=== PATIENT | female | born 1945 | race Hispanic/Latino ===

== ENCOUNTER → 2017-07-31 | Outpatient (CLI) | payer OTHER ==
[~2017-07-31] MED LIST: ASPI-1012 PO; BUTA1CAP53 PO; CARB15DR3 OU; CYCL30DR OU; DOCU100C33 PO; FLUT15.88 NS; HYDR-2132 PO; HYDR200T4 PO; HYDR25TA PO; IPRA21SP NS; METO-409 PO; VITAMIN D PO; [UNRECOGNIZED DRUG - CODE] PO
== END ==
LOC: RAH 16:26
PROVIDERS: ATTEND Internal Medicine
DX: M54.5 Low back pain (principal)
CPT/HCPCS: 72100

== ENCOUNTER → 2018-02-26 | Outpatient (CLI) | payer OTHER | END | disposition home or self-care (01) | LOC: RAH 13:05 | PROVIDERS: ATTEND Internal Medicine | DX: Z12.31 Encounter for screening mammogram for malignant neoplasm of breast (principal) | CPT/HCPCS: 77067 ==

== ENCOUNTER → 2018-08-27 | Outpatient (CLI) | payer OTHER | END | disposition home or self-care (01) | LOC: RAH 15:21 | PROVIDERS: ATTEND Internal Medicine | DX: D73.89 Other diseases of spleen (principal); I70.90 Unspecified atherosclerosis | CPT/HCPCS: 76700 ==

== ENCOUNTER → 2018-10-12 | Outpatient (CLI) | payer OTHER | END | disposition home or self-care (01) | LOC: SHCH 14:08 | PROVIDERS: ATTEND Internal Medicine Cardiovascular Disease | DX: I37.1 Nonrheumatic pulmonary valve insufficiency (principal) | CPT/HCPCS: 93306 ==

== ENCOUNTER → 2019-05-23 | Outpatient (CLI) | payer OTHER ==
[~2019-05-23] MED LIST changes: +FLUT15.845 NS; -FLUT15.88 NS
== END | disposition home or self-care (01) ==
LOC: RAH 15:37
PROVIDERS: ATTEND Internal Medicine
DX: Z12.31 Encounter for screening mammogram for malignant neoplasm of breast (principal)
CPT/HCPCS: 77067

== ENCOUNTER → 2020-10-08 | Outpatient (CLI) | payer MEDICARE | END | disposition home or self-care (01) | LOC: RAH 15:43 | PROVIDERS: ATTEND Internal Medicine | DX: M19.072 Primary osteoarthritis, left ankle and foot (principal); M77.31 Calcaneal spur, right foot; M77.32 Calcaneal spur, left foot | CPT/HCPCS: 73630 ==

== ENCOUNTER → 2021-03-25 | Outpatient (CLI) | payer MEDICARE | END | disposition home or self-care (01) | LOC: RAH 15:10 | PROVIDERS: ATTEND Nurse Practitioner Family | DX: M79.641 Pain in right hand (principal); M19.041 Primary osteoarthritis, right hand | CPT/HCPCS: 73130 ==

== ENCOUNTER → 2021-11-20 | Outpatient (CLI) | payer MEDICARE | END | disposition home or self-care (01) | LOC: RAH 10:08 | PROVIDERS: ATTEND Internal Medicine | DX: Z12.31 Encounter for screening mammogram for malignant neoplasm of breast (principal) | CPT/HCPCS: 77067 ==

== ENCOUNTER → 2022-12-09 | Outpatient (CLI) | payer MEDICARE ==
[~2022-12-09] MED LIST changes: -HYDR200T4 PO; +HYDR200T75 PO
== END | disposition home or self-care (01) ==
LOC: RAH 10:23
PROVIDERS: ATTEND Internal Medicine
DX: I70.0 Atherosclerosis of aorta (principal); J20.9 Acute bronchitis, unspecified; M47.815 Spondylosis without myelopathy or radiculopathy, thoracolumbar region
CPT/HCPCS: 71046

== ENCOUNTER → 2024-01-07 | Outpatient (CLI) | payer MEDICARE | END | disposition home or self-care (01) | LOC: RAH 10:43 | PROVIDERS: ATTEND Clinical Nurse Specialist Family Health | DX: M47.812 Spondylosis without myelopathy or radiculopathy, cervical region (principal); M47.814 Spondylosis without myelopathy or radiculopathy, thoracic region; M48.02 Spinal stenosis, cervical region; M54.6 Pain in thoracic spine; R74.8 Abnormal levels of other serum enzymes; M54.2 Cervicalgia; R07.89 Other chest pain | CPT/HCPCS: 72040; 72070 ==

== ENCOUNTER → 2024-03-03 | Outpatient (CLI) | payer MEDICARE ==
--- NOTE | 2024-03-03 15:47 | HMCIMG ---
US SOFT TISSUE LOWER BACK REASON: LIPOMATOUS NEOPLASM OF SKIN. COMPARISON: None TECHNIQUE: Right lower back ultrasound study was performed. FINDINGS: Over the region of interest in the right lower back, no evidence of cystic or hypoechoic mass is seen. IMPRESSION: No acute finding at the region of interest.
== END | disposition home or self-care (01) ==
LOC: RAH 14:12
PROVIDERS: ATTEND Internal Medicine
DX: D17.30 Benign lipomatous neoplasm of skin and subcutaneous tissue of unspecified sites (principal)
CPT/HCPCS: 76705

== ENCOUNTER → 2024-09-09 | Outpatient (CLI) | payer MEDICARE ==
--- NOTE | 2024-09-09 14:22 | HMCIMG ---
MR SPINAL CANAL, LUMBAR WO CON HISTORY: Left-sided sciatica COMPARISON: None TECHNIQUE: MRI of the lumbar spine was performed utilizing multiple pulse sequences in axial , coronal and sagittal plane. Patient was not given contrast through intravenous route. FINDINGS: No abnormal signal intensity is seen of the visualized bony structure. No loss of vertebral height is seen. There is straightening of normal lumbar curvature which may be related to muscle spasm or positioning. Degenerative disc signals are present at all lumbar spine levels. Visualized distal conus is unremarkable. At the L2-3 level, there is spondylotic disc with annular disc bulge and bilateral ligamentum flavum hypertrophy causing anterior thecal sac compression with bilateral lateral recess stenosis and bilateral neural foraminal stenosis. The thecal sac measures approximately 7.6 mm in its anterior posterior dimension. At the L3-4 level, there is spondylotic disc with annular disc bulge/disc protrusion and bilateral ligamentum flavum hypertrophy causing anterior thecal sac compression with bilateral lateral recess stenosis and bilateral neural foraminal stenosis. The thecal sac measures approximately 6.5 mm in its anterior posterior dimension. At the L4-5 level, there is spondylotic disc with annular disc bulge/disc protrusion and bilateral ligamentum flavum hypertrophy causing anterior thecal sac compression with bilateral lateral recess stenosis and bilateral neural foraminal stenosis. The thecal sac measures approximately 5.56 mm in its anterior posterior dimension. At the L5-S1 level, there is spondylotic disc with bilateral facet hypertrophy causing anterior thecal sac compression with bilateral lateral recess stenosis and bilateral neural foraminal stenosis. The thecal sac measures approximately 5.9 mm in its anterior posterior dimension. IMPRESSION: 1. DJD with lumbar spine spondylosis. Central canal narrowing with no foraminal stenosis are noted to terminate at L3-4, L4-5 and L5-S1 levels.
== END | disposition home or self-care (01) ==
LOC: RAH 12:55
PROVIDERS: ATTEND Internal Medicine
DX: M47.817 Spondylosis without myelopathy or radiculopathy, lumbosacral region (principal); M51.360 Other intervertebral disc degeneration, lumbar region with discogenic back pain only; M48.07 Spinal stenosis, lumbosacral region; M53.87 Other specified dorsopathies, lumbosacral region; M54.32 Sciatica, left side; M79.7 Fibromyalgia; G63 Polyneuropathy in diseases classified elsewhere
CPT/HCPCS: 72148